=== PATIENT | male | born 1945 | race Caucasian/White ===

== ENCOUNTER → 2018-02-25 | Outpatient (CLI) | payer MEDICARE, OTHER ==
[2018-02-25 14:15] LABS: BACTERIA, URINE AUTO NEGATIVE (NEGATIVE); MUCUS, URINE SMALL (NEGATIVE); RBC, URINE AUTO 2 /HPF (0-3); SQUAMOUS EPITHELIAL CELL UR AU 0 /HPF (0-6); WBC, URINE AUTO 3 /HPF (0-3)
[2018-02-25 14:36] LABS: BLOOD UREA NITROGEN 17 MG/DL (7-18); CALCIUM LEVEL 8.8 MG/DL (8.8-10.2); CARBON DIOXIDE LEVEL 30 MEQ/L (21-32); CHLORIDE LEVEL 103 MEQ/L (98-107); CREATININE FOR GFR 1.17 MG/DL (0.70-1.30); GLOMERULAR FILTRATION RATE > 60.0 (>42); POTASSIUM SERUM 5.2 MEQ/L (3.5-5.1); SODIUM LEVEL 139 MEQ/L (136-145)
[2018-02-25 14:57] LABS: GLUCOSE, FASTING 103 MG/DL (70-100)
== END ==
LOC: M SMT 10:07
PROVIDERS: ATTEND Specialist
DX: R31.0 Gross hematuria (principal); R35.1 Nocturia
CPT/HCPCS: 36415; 80048; 81015; 87086; G0103; G0463

== ENCOUNTER → 2018-03-03 | Outpatient (CLI) | payer MEDICARE, OTHER ==
[~2018-03-03] MED LIST: ISOVUE-370 76% 100ML VIAL (Q9967) As Ordered ONE
--- NOTE | 2018-03-09 15:27 | REP ---
CT urography: CT study of the abdomen and pelvis without and with dual-phase postcontrast imaging: History: Gross hematuria. Comparison is made with CT study of the abdomen and pelvis from May 28, 2008. CT contrast dose: 100 mL of intravenous Isovue 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 The lung bases show no significant abnormality. There is no evidence of pleural effusion. There is mild to moderate fatty infiltration of the liver with areas of fat sparing in the left lobe near the gallbladder. No focal liver lesion is seen. Spleen is unremarkable. No adrenal lesion is observed. No pancreatic abnormality is seen. The gallbladder is unremarkable. There is a lower pole intrarenal calculus on the right measuring 7 mm in diameter. This is essentially unchanged from the 2008 prior study. There is also a cyst in the lower pole of the right kidney 3.4 cm in greatest diameter. Previously, this measured 2.7 cm. No renal mass lesion is observed. No hydronephrosis is seen. No left-sided urinary tract calculus is appreciated. The kidneys enhance symmetrically. No bladder mass lesion is seen. The prostate gland is enlarged and contains dystrophic calcifications. The urinary bladder is largely empty at the time of the initial phase acquisitions. Delayed phase images show no evidence of filling defect in the urinary bladder or upper tracts or ureters. Small and large intestinal bowel loops are unremarkable. A normal appendix is seen. Vascular calcification is seen in a normal caliber aorta. Impression: 7 mm intrarenal calculus lower pole right kidney without hydronephrosis. There is a simple cyst in the lower pole of the right kidney measuring 3.4 cm in diameter. Fatty infiltration of the liver is seen. No other significant finding. Electronically Signed by Jong Schulz MD 03/09/2018 03:52 P
== END ==
LOC: M RAD 09:34
PROVIDERS: ATTEND Specialist
DX: R31.0 Gross hematuria (principal); N28.1 Cyst of kidney, acquired; K76.0 Fatty (change of) liver, not elsewhere classified; N20.9 Urinary calculus, unspecified
CPT/HCPCS: 74178; Q9967

== ENCOUNTER → 2019-09-25 | Outpatient (CLI) | payer MEDICARE, OTHER ==
--- NOTE | 2019-09-26 10:25 | ECHO ---
DATE OF PROCEDURE: 09/25/2019 REFERRING PHYSICIAN: Dr. Collin Tapia INDICATION: Left bundle branch block. HEIGHT: 180 cm. WEIGHT: 85 kg. DIMENSIONS: IVS: 0.9 LV: 4.8 LVPW: 0.9 LA: 3.6 Aorta: 3.5 IVC: 1.7 Mitral E wave velocity: 117 A wave: 89 E prime septal: 7.5 E prime lateral: 7.2 FINDINGS: The study is of good technical quality. The patient is in sinus bradycardia with ventricular rate in the low 50s. QRS complex appears narrow. The left ventricle is normal size and has normal systolic function, I estimate left ventricular ejection fraction (LVEF) 60-65%. I do not appreciate septal wall motion abnormality typically associated with left bundle branch block. The right ventricle is also normal size and systolic function. Both atria appear normal. The aortic valve is tricuspid. It is mildly sclerotic, but mobility of cusps is preserved. The mitral valve exhibits minimal degenerative abnormalities as well with mitral annular calcifications, but mobility of leaflets is preserved. The tricuspid and pulmonic valves appear normal. No pericardial effusion is noted. The inferior vena cava is of normal size and is appropriately collapses with inspiration indicative of normal central venous pressure. Aortic root and aortic arch appear normal. The abdominal aorta was not visualized. Doppler interrogation of the aortic valve reveals no stenosis and trace insufficiency. There is also trace mitral insufficiency and trace tricuspid insufficiency. Calculated pulmonary artery pressure is around 30 mmHg, which is on upper limits of normal values. Mitral inflow pattern and tissue Doppler imaging of the mitral annulus reveal likely normal diastolic function even though tissue Doppler velocities of mitral annulus are mildly reduced. CONCLUSIONS: 1. The study is of good technical quality, the patient is in sinus rhythm. 2. Normal left ventricle (LV) size with normal LV systolic function and probably also normal diastolic function. 3. Normal right ventricle. 4. Aortic sclerosis with no stenosis and trace insufficiency. 5. Trace mitral and tricuspid insufficiency. 6. Likely normal central venous pressure and probably normal pulmonary artery pressure. 7. I do not appreciate wall motion abnormality typically associated with left bundle branch block. COMMENT: Subacute bacterial endocarditis (SBE) prophylaxis is not recommended. Overall relatively normal study for patient's age.
== END ==
LOC: M CARPUL 08:08
PROVIDERS: ATTEND Internal Medicine
DX: I44.7 Left bundle-branch block, unspecified (principal)

== ENCOUNTER → 2021-12-21 | Outpatient (CLI) | payer MEDICARE, OTHER ==
[~2021-12-21] MED LIST changes: +ATOR1TAB21 PO; +EZET10TA21 PO; -ISOVUE-370 76% 100ML VIAL (Q9967) As Ordered ONE; +LOSA50TA28 PO; +METO1TAB32 PO; +OMEP-173 PO; +SILD100T PO; +VITA100093 PO
== END ==
LOC: M LABSMTC 10:44
PROVIDERS: ATTEND Anesthesiology
DX: Z01.812 Encounter for preprocedural laboratory examination (principal); Z20.822 Contact with and (suspected) exposure to COVID-19

== ENCOUNTER 2021-12-25 06:38 | Day surgery (SDC) | payer OTHER ==
[~2021-12-25] VITALS: Ht 177.8 cm; Wt 85.7 kg
[~2021-12-25 06:38] MED LIST changes: +NS 1,000 ML IV ONE
[2021-12-25] MEDS ORDERED: LIDOCAINE 2% INJ 100 MG/5 ML SYRINGE As Ordered ONE (06:57)
[2021-12-25] MEDS ORDERED: propofoL 500 MG/50 ML VIAL As Ordered ONE (06:57)
[2021-12-25 08:20] VITALS: BP 146/72
== END 2021-12-25 08:22 | disposition home or self-care (01) ==
LOC: M OPP 06:38
PROVIDERS: ATTEND Surgery
DX: Z12.11 Encounter for screening for malignant neoplasm of colon (principal); Z86.010 Personal history of colon polyps; D12.3 Benign neoplasm of transverse colon; K64.0 First degree hemorrhoids; K57.30 Diverticulosis of large intestine without perforation or abscess without bleeding; Z79.02 Long term (current) use of antithrombotics/antiplatelets; Z79.51 Long term (current) use of inhaled steroids; Z79.899 Other long term (current) drug therapy; Z88.0 Allergy status to penicillin; E78.00 Pure hypercholesterolemia, unspecified; I10 Essential (primary) hypertension

== ENCOUNTER → 2023-12-09 | Outpatient (CLI) | payer MEDICARE, OTHER ==
[~2023-12-09] MED LIST changes: -NS 1,000 ML IV ONE
== END ==
LOC: M RAD 08:19
PROVIDERS: ATTEND Internal Medicine
DX: E80.6 Other disorders of bilirubin metabolism (principal); N28.1 Cyst of kidney, acquired; I70.0 Atherosclerosis of aorta; N28.89 Other specified disorders of kidney and ureter; K76.0 Fatty (change of) liver, not elsewhere classified

== ENCOUNTER → 2024-05-08 | Outpatient (CLI) | payer OTHER, MEDICARE ==
[~2024-05-08] MED LIST changes: +ISOVUE-370 76% 100ML VIAL As Ordered ONE
== END ==
LOC: M RAD 14:30
PROVIDERS: ATTEND Internal Medicine
DX: N28.89 Other specified disorders of kidney and ureter (principal); N20.0 Calculus of kidney
CPT/HCPCS: 74178; Q9967

== ENCOUNTER 2024-12-13 08:42 | Day surgery (SDC) | payer MEDICARE, OTHER ==
[~2024-12-13] VITALS: Ht 177.8 cm; Wt 84.5 kg
[~2024-12-13 08:42] MED LIST changes: -EZET10TA21 PO; +EZET10TA57 PO; -ISOVUE-370 76% 100ML VIAL As Ordered ONE; +PHENYLEPHRINE 10% OPHTH SOL 5ML OD PRN
[2024-12-13] MEDS ORDERED: MIDAZOLAM INJ 2 MG/2 ML VIAL As Ordered ONE (09:46)
[2024-12-13] MEDS: OFLOXACIN 0.3 % (OCUFLOX) OPTH SOL 5ML OD ONE (10:53)
[2024-12-13] MEDS: CYCLOPENTOLATE 1% OPHTH SOLN 2 ML BTL OD SCH (10:54)
[2024-12-13] MEDS: TROPICAMIDE 1% OPHTH SOLN 15ML OD SCH (10:54)
[2024-12-13] MEDS: LIDOCAINE 3.5% 1 ML OPHTH TOPICAL GEL OU ONE (10:54)
[2024-12-13] MEDS: PHENYLEPHRINE 2.5% OPHTH SOL 2ML OD SCH (10:54)
[2024-12-13] MEDS ORDERED: GLYCOPYRROLATE INJ 0.2 MG/ML 2 ML VIAL As Ordered ONE (11:38)
[2024-12-13] MEDS: DUOVISC (0.50 ML VISCOAT/0.85 ML PROVISC) OPHTH KIT As Ordered ONE (11:43)
[2024-12-13] MEDS: BSS IRRIG/VANCO(10MG)/TOBRA(5MG)/EPINEPH(1:1000-0.5CC)500ML BAG-ORONLY As Ordered ONE (11:43)
[2024-12-13] MEDS: CEFUROXIME 1 MG/0.1 ML INTRACAMERAL INJ As Ordered ONE (11:43)
[2024-12-13] MEDS: LIDOCAINE 1% SDV 5 ML VIAL As Ordered ONE (11:43)
[2024-12-13 12:13] VITALS: BP 135/74; TEMP 97.8; O2SAT 98
== END 2024-12-13 12:39 | disposition home or self-care (01) ==
LOC: M SDC 08:42
PROVIDERS: ATTEND Ophthalmology
DX: H40.1111 Primary open-angle glaucoma, right eye, mild stage (principal); H25.11 Age-related nuclear cataract, right eye; I10 Essential (primary) hypertension; E78.00 Pure hypercholesterolemia, unspecified; Z79.899 Other long term (current) drug therapy; Z88.0 Allergy status to penicillin
CPT/HCPCS: 66991; C1783; J0697; J1596; J2250; J3010; V2788